=== PATIENT | male | born 1945 | race Caucasian/White ===

== ENCOUNTER 2016-08-29 08:59 | Outpatient (CLI) | payer MEDICARE, OTHER ==
[2016-08-29 09:57] LABS: eGFR (African) > 60; eGFR (Non-African) > 60
== END 2016-08-29 09:00 ==
LOC: LAB 08:59
PROVIDERS: ATTEND Family Medicine
DX: N40.1 Benign prostatic hyperplasia with lower urinary tract symptoms (principal); E78.5 Hyperlipidemia, unspecified; R73.9 Hyperglycemia, unspecified; I10 Essential (primary) hypertension
CPT/HCPCS: 36415; 80053; 80061; 83036; 84153

== ENCOUNTER 2016-09-12 09:58 | Outpatient (CLI) | payer MEDICARE, OTHER | END 2016-09-12 10:10 | LOC: OUT 09:58 | PROVIDERS: ATTEND Family Medicine | DX: E11.9 Type 2 diabetes mellitus without complications (principal) | CPT/HCPCS: G0270; G0463 ==

== ENCOUNTER 2016-09-24 07:30 | Day surgery (SDC) | payer MEDICARE, OTHER ==
[2016-09-24] MEDS ORDERED: KETAMINE HCL 200 MG/20 ML VIAL ONE (08:00)
[2016-09-24] MEDS ORDERED: LACTATED RINGERS 1,000 ML IV.SOLN IV ONE (08:00)
[2016-09-24] MEDS ORDERED: SALINE FLUSH 10 ML DISP.SYRIN IVF ONE (08:00)
[2016-09-24] MEDS ORDERED: PROPOFOL 500 MG/50 ML VIAL IV ONE (08:00)
[2016-09-24] MEDS ORDERED: LIDOCAINE HCL/PF 2% 100 MG/5 ML VIAL IJ ONE (08:00)
--- NOTE | 2016-09-25 11:13 | GI Report ---
REFERRING PHYSICIAN: Dr. Manuel Casey CATIA DESIGNER: Nilesh Olivier MD PROCEDURE MEDICATION: Propofol as per anesthesia. INDICATIONS: This is a 71-year-old man who has had polyps in the past but most of his polyps have been hyperplastic. He denies any changes in his stool or blood in the stool. He does have diverticular disease of the colon. He is on medicine for hypertension. PROCEDURE PERFORMED: Colonoscopy with polypectomy. PROCEDURE: An Olympus video colonoscope was advanced to the rectum. In the sigmoid, he has moderate diverticular disease of the colon. The colonoscope was slowly advanced to the cecum. The appendiceal orifice and ileocecal valve were normal. The cecum and ascending were normal. In the mid-transverse colon at 70 cm, the patient had a 3 mm flat polyp removed with electrocautery. In the descending colon and, particularly in the sigmoid, there is diverticular disease. In the rectum, patient has some multiple little 1 to 2 mm flat polyps consistent with hyperplastic polyps. We did biopsy a couple of large ones that were 2 mm in size just for sampling. Patient tolerated the procedure well. FINDINGS: 1. One polyp removed from the transverse colon. 2. Moderate diverticular disease of the sigmoid colon and descending colon. 3. A couple of miniature hyperplastic-appearing polyps of the rectum that were biopsied and removed. RECOMMENDATIONS: 1. A high-fiber diet. 2. If the polyps are all hyperplastic, he probably could wait 10 years to have his colon re-looked at. If adenomatous, would re-look again in 5 years. cc: Dr. Manuel BOLAND
== END 2016-09-24 07:32 ==
LOC: OPSURG 07:30
PROVIDERS: ATTEND Internal Medicine Gastroenterology
DX: Z86.010 Personal history of colon polyps (principal); K57.30 Diverticulosis of large intestine without perforation or abscess without bleeding; I10 Essential (primary) hypertension; D12.3 Benign neoplasm of transverse colon; K62.1 Rectal polyp
CPT/HCPCS: 45385; J2001; J2704; J7120; S1016

== ENCOUNTER 2016-12-18 08:02 | Outpatient (CLI) | payer MEDICARE, OTHER | END 2016-12-18 08:03 | LOC: LAB 08:02 | PROVIDERS: ATTEND Family Medicine | DX: E11.8 Type 2 diabetes mellitus with unspecified complications (principal) | CPT/HCPCS: 36415; 83036 ==

== ENCOUNTER 2017-04-19 13:55 | Outpatient (CLI) | payer MEDICARE, OTHER | END 2017-04-19 13:56 | LOC: POD 13:55 | PROVIDERS: ATTEND Podiatrist | DX: M20.41 Other hammer toe(s) (acquired), right foot (principal); M20.42 Other hammer toe(s) (acquired), left foot; L84 Corns and callosities | CPT/HCPCS: G0463 ==

== ENCOUNTER 2017-05-22 12:09 | Outpatient (CLI) | payer MEDICARE, OTHER | END 2017-05-22 12:15 | LOC: LAB 12:09 | PROVIDERS: ATTEND Family Medicine | DX: E11.8 Type 2 diabetes mellitus with unspecified complications (principal) | CPT/HCPCS: 36415; 83036 ==

== ENCOUNTER 2017-09-11 13:29 | Outpatient (CLI) | payer MEDICARE, OTHER | END 2017-09-11 13:30 | LOC: LAB 13:29 | PROVIDERS: ATTEND Family Medicine | DX: E11.8 Type 2 diabetes mellitus with unspecified complications (principal) | CPT/HCPCS: 36415; 83036 ==

== ENCOUNTER 2017-11-26 10:55 | Outpatient (CLI) | payer MEDICARE, OTHER ==
[2017-11-26 11:39] LABS: BASOPHILS % 0.9 (0.0-1.5); MEAN CORPUSCULAR HEMOGLOBIN 33.5 pg (28.0-34.0); MEAN CORPUSCULAR VOLUME 95.7 fl (80.0-100.0); MONOCYTES % 4.2 % (0.0-11.0); NEUTROPHILS # 4.8 # k/uL (1.4-7.7)
[2017-11-26 11:56] LABS: eGFR (African) > 60; eGFR (Non-African) > 60
== END 2017-11-26 12:51 ==
LOC: LAB 10:55
PROVIDERS: ATTEND Family Medicine
DX: E78.5 Hyperlipidemia, unspecified (principal); I10 Essential (primary) hypertension; E11.8 Type 2 diabetes mellitus with unspecified complications; R63.5 Abnormal weight gain; N40.1 Benign prostatic hyperplasia with lower urinary tract symptoms
CPT/HCPCS: 36415; 80053; 80061; 83036; 84153; 84443; 85025

== ENCOUNTER 2018-01-21 13:32 | Outpatient (CLI) | payer MEDICARE, OTHER | END 2018-01-21 13:40 | LOC: POD 13:32 | PROVIDERS: ATTEND Podiatrist | DX: M20.41 Other hammer toe(s) (acquired), right foot (principal); M20.42 Other hammer toe(s) (acquired), left foot; L84 Corns and callosities; B35.1 Tinea unguium; M79.674 Pain in right toe(s); M79.675 Pain in left toe(s) | CPT/HCPCS: 11721; G0463 ==

== ENCOUNTER 2018-02-26 13:34 | Outpatient (CLI) | payer MEDICARE, OTHER | END 2018-02-26 13:35 | LOC: LAB 13:34 | PROVIDERS: ATTEND Family Medicine | DX: E11.8 Type 2 diabetes mellitus with unspecified complications (principal) | CPT/HCPCS: 83036 ==